=== PATIENT | female | born 1960 | race Caucasian/White ===

== ENCOUNTER 2017-06-22 11:24 | Emergency (ER) | payer BC ==
[~2017-06-22] VITALS: Ht 160 cm; Wt 102.6 kg
[~2017-06-22 11:24] MED LIST: CARISOPRODOL350 MG PO; CLINDAMYCIN HC300 MG PO; LISINOPRIL10 MG PO; OFLOXACIN10 M1 BOTH EYES; REMICADE10 MG/ML IV; SKELAXIN400 M1 PO; TRAMADOL HCL50 MG PO; TYLENOL REGULA325 MG PO; VICODIN,LORT1 TABLET PO
[2017-06-22 12:21] LABS: ADD MIUA? YES; BILIRUBIN NEGATIVE; BLOOD SMALL; COLOR YELLOW ((YELLOW)); GLUCOSE (STRIP) NEGATIVE; KETONES NEGATIVE; LEUKOCYTES NEGATIVE; NITRITE NEGATIVE; PROTEIN (STRIP) 30; SPECIFIC GRAVITY 1.025 (1.000-1.030); UROBILINOGEN 0.2 MG/DL (0.2-1.0)
[2017-06-22 12:26] LABS: BACTERIA RARE /HPF; EPITHELIAL CELLS RARE /HPF; HYALINE CASTS 0-5 /LPF; MUCUS TRACE /LPF; RED BLOOD CELLS 0-5 /HPF (0-5); UCUL ADDED? NO; WHITE BLOOD CELLS 0-5 /HPF (0-5)
[2017-06-22 12:34] LABS: HEMATOCRIT 44.2 % (36.0-46.0); MCH 28.8 PG (29.0-34.0); MCHC 32.6 G/DL (30.0-36.0); MCV 88.4 FL (83-99); MEAN PLAT.VOLUME 11.1 uM^3 (9.5-12.4); PLATELET COUNT 287 K/uL (156-360); RBC DIS.WIDTH-CV 12.5 % (11.8-14.6); RBC DIS.WIDTH-SD 40.4 % (39-53); WHITE BLOOD COUNT 13.4 K/uL (4.1-10.2)
[2017-06-22 12:51] LABS: CHLORIDE 109 mEq/L (99-109); POTASSIUM 3.7 mEq/L (3.7-5.4); SODIUM 139 mEq/L (136-147)
[2017-06-22 12:53] LABS: GLUCOSE 81 mg/dL (70-99)
[2017-06-22 12:54] LABS: ANION GAP 10 MEQ/L (2-14)
[2017-06-22 12:55] LABS: TOTAL BILIRUBIN 0.6 mg/dL (0.0-1.0)
[2017-06-22 12:56] LABS: ALKALINE PHOSPHATASE 63 IU/L (3-129); GFR ESTIMATE (CALCULATED) > 59 mL/min/
[2017-06-22 12:58] LABS: UREA NITROGEN (BUN) 24 mg/dL (9-23)
[2017-06-22] MEDS ORDERED: PERCOCET 5/31 TABLET PO (14:24)
[2017-06-22] MEDS ORDERED: ZOFRAN ODT4 MG PO (14:24)
[2017-06-22] MEDS ORDERED: BENTYL20 MG PO (14:24)
[2017-06-22 14:45] VITALS: BP 116/56
== END 2017-06-22 14:46 | disposition home or self-care (01) ==
LOC: EME 11:24
PROVIDERS: Nurse Practitioner Family
DX: R10.84 Generalized abdominal pain (principal); R11.2 Nausea with vomiting, unspecified; R19.7 Diarrhea, unspecified; J45.909 Unspecified asthma, uncomplicated; F32.9 Major depressive disorder, single episode, unspecified; I10 Essential (primary) hypertension; K21.9 Gastro-esophageal reflux disease without esophagitis; Z88.0 Allergy status to penicillin; Z88.8 Allergy status to other drugs, medicaments and biological substances
CPT/HCPCS: 74177; 80053; 81003; 85027; 99281; 99284; J1885; J2405; J7030

== ENCOUNTER → 2017-09-25 | Outpatient (CLI) | payer BC, OTHER ==
[~2017-09-25] MED LIST changes: +BENTYL20 MG PO; +PERCOCET 5/31 TABLET PO; +ZOFRAN ODT4 MG PO
== END | disposition home or self-care (01) ==
LOC: CDC 12:47
DX: Z01.810 Encounter for preprocedural cardiovascular examination (principal); R00.1 Bradycardia, unspecified
CPT/HCPCS: 93000